=== PATIENT | male | born 1985 | race Caucasian/White ===

== ENCOUNTER 2020-11-19 09:14 | Emergency (ER) | payer OTHER, SELFPAY ==
[2020-11-19 09:29] VITALS: BP 132/72; PULSE 67; RESP 16; TEMP 36.2; O2SAT 99
--- NOTE | 2020-11-19 09:34 | ED.URI ---
HPI - URI/Sore Throat General Chief Complaint: Upper Respiratory Infection Stated Complaint: Getting over Covid Time Seen by Provider: 11/19/20 09:34 Source: patient and RN notes reviewed Mode of arrival: ambulatory Limitations: no limitations History of Present Illness HPI Narrative: 35-year-old male presents to the [facility] with concerns over stress and fatigue. Patient states he has had Covid 2 to 3 weeks ago. Patient reports that he still not feeling completely well. States that he used to be able to go and work out work long shifts and states he just wants to sleep. Denies any fevers. No chest pain or shortness of breath. No abdominal pain. Patient states that he is very stressed over possibly losing his job. Denies SI HI Related Data Allergies Allergy/AdvReac Type Severity Reaction Status Date / Time No Known Allergies Allergy Verified 11/19/20 09:50 Review of Systems Review of Systems: All systems reviewed & are unremarkable except as noted in HPI and below Constitutional: Constitutional: Reports as per HPI and Reports fatigue Eyes: Eyes: Reports no additional eye complaints ENT: Reports system reviewed and no additional complaints, except as documented, Denies dysphagia, Denies dizziness, Denies nasal congestion and Denies sore throat Cardiovascular: Cardiovascular: Reports no additional cardiovascular complaints and Denies chest pain Respiratory: Respiratory: Reports no additional respiratory complaints, Denies chest congestion, Denies cough, Denies dyspnea and Denies wheezing Gastrointestinal: Gastrointestinal: Reports no additional gastrointestinal complaints, Denies abdominal pain, Denies diarrhea, Denies nausea and Denies vomiting Musculoskeletal: Musculoskeletal: Reports no additional musculoskeletal complaints Integumentary/Breasts: Skin/Breast: Reports system reviewed and no additional complaints, except as docu Neurologic: Reports system reviewed and no additional complaints, except as documented Psychiatric: Psychiatric: Reports as per HPI, Reports anxiety, Denies homicidal ideation and Denies suicidal ideation Endocrine: Endocrine: Reports no additional endocrine complaints Allergic/Immunologic: Allergic/Immunologic: Reports no additional allergic/immunologic complaints PMFSH Past Medical History Medical History (Updated 11/19/20 @ 16:43 by Kely Savage) No significant past medical history Surgical History Surgical History (Updated 11/19/20 @ 16:43 by Kely Savage) No significant past surgical history Social History Social History (Updated 11/19/20 @ 16:43 by Kely Savage) Smoking status: Never smoker Living arrangements: with family Occupation/Education: occupation Gender identity (if verbalized by the patient): Male Comments At the time of my signature, I reviewed and agree with the nursing past medical, surgical, social, and family history. There is no relevant family history pertinent to the patient complaint. Exam Const: General: healthy appearing, no acute distress and alert Nutritional Appearance: well nourished Orientation/consciousness: patient oriented x3 Limitations: no limitations HENMT: Head: normal to inspection Eyes: Conjunctivae: conjunctivae normal Pupils: Equal, round and reactive pupils present Neck: Neck: normal visual inspection, no lymphadenopathy and no meningeal signs Chest: Chest palpation & inspection: normal inspection of the chest Resp: Effort & Inspection: normal respiratory effort and no use of accessory muscles Auscultation: clear to auscultation bilaterally, no crackles, no rales, no rhonchi and no wheezes Cardio: Rate: regular rate Rhythm: regular rhythm GI: GI Palp: Yes Soft to palpation, No Tenderness to palpation present (GI) and No Guarding due to palpation present (GI) Back/Spine/Pelvis: Back: no CVA tenderness Skin: General skin exam: normal color Rashes: no rashes Wounds: no wounds Neuro: General: patient or
== END 2020-11-19 10:00 | disposition home or self-care (01) ==
PROVIDERS: Emergency Provider Nurse Practitioner
DX: R53.83 Other fatigue (principal); U09.9 Post COVID-19 condition, unspecified
CPT/HCPCS: 99211; G0463

== ENCOUNTER 2024-12-18 17:45 | Emergency (ER) | payer OTHER, SELFPAY ==
--- NOTE | 2024-12-18 17:46 | ED.URI ---
HPI - URI/Sore Throat General Chief Complaint: Upper Respiratory Infection Stated Complaint: Sore Throat Time Seen by Provider: 12/18/24 17:46 Source: patient Mode of arrival: ambulatory Limitations: no limitations History of Present Illness HPI Narrative: Duy is a 39-year-old male patient presenting to the clinic today with complaints of a scratchy throat x 1 day. He reports has some discomfort with eating and drinking. States the throat is scratchy/itchy. Has used some throat lozenges. Noticed today that he has white spots in his throat. Denies any use of inhalers reviews antibiotic use. No fevers, chills, body aches. No known exposure to anyone with strep. MD elicited complaint: sore throat and nasal congestion Related Data Allergies Allergy/AdvReac Type Severity Reaction Status Date / Time No Known Allergies Allergy Verified 12/18/24 17:46 Review of Systems Review of Systems: Pertinent positives per HPI. Patient denies any fever, chills, rash, headache, visual changes, dizziness, cough, shortness of breath, chest pain, palpitations, nausea, vomiting, diarrhea, constipation, abdominal pain, or any urinary issues. PMFSH Past Medical History Medical History No significant past medical history Surgical History Surgical History No significant past surgical history Social History Social History Living arrangements: with family Occupation/Education: occupation Gender identity (if verbalized by the patient): Male Comments At the time of my signature, I reviewed and agree with the nursing past medical, surgical, social, and family history. There is no relevant family history pertinent to the patient complaint. Exam Narrative: General: Well-developed, well nourished, in no apparent distress Head: Normocephalic, atraumatic Eyes: Pupils equally round and reactive to light bilaterally, EOM intact, sclera and conjunctive clear, no discharge, lids normal Ears: TMs intact and clear, ear canals clear, no drainage, grossly hearing normal. Nose: Nares patent, no discharge, no inflammation, no sinus tenderness. Mouth: Oral pharynx red with white plaque-like lesions on the uvula, soft palate, oral pharynx without masses, good dentition, MMM. Neck: Supple, trachea midline, no enlargement of anterior or posterior cervical nodes, no thyroid masses or goiter palpable. Cardio: Regular rate and rhythm, s1 and s2 normal, no murmur appreciated. Resp: Clear to auscultation bilaterally, no rhonchi, rales, wheezing or rubs Course Course Emergency Course: Portions of this record may have been created with voice recognition software. Level of Care: Express Care Visit Vital Signs Vital signs: Vital Signs Temperature 36.9 C 12/18/24 17:56 Pulse Rate 72 12/18/24 17:56 Respiratory Rate 16 12/18/24 17:56 Blood Pressure 140/94 H 12/18/24 17:56 Pulse Oximetry 100 12/18/24 17:56 Oxygen Delivery Room Air 12/18/24 17:56 Temperature 36.9 C 12/18/24 17:56 Pulse Rate 72 12/18/24 17:56 Respiratory Rate 16 12/18/24 17:56 Blood Pressure 140/94 H 12/18/24 17:56 Pulse Oximetry 100 12/18/24 17:56 Oxygen Delivery Room Air 12/18/24 17:56 Vital signs reviewed MDM - URI/Sore Throat MDM Narrative Medical decision making narrative: At the time of visit patient is resting comfortably on the exam table. Patient appears to be nontoxic. Complaints of a scratchy throat x 1 day. He reports has some discomfort with eating and drinking. States the throat is scratchy/itchy. Has used some throat lozenges. Noticed today that he has white spots in his throat. Denies any use of inhalers reviews antibiotic use. No fevers, chills, body aches. No known exposure to anyone with strep. On exam patient has red oropharynx with white plaque-like lesions to the uvula and soft palate. Strep test was ordered. Labs: Strep test was negative in the clinic today. Plan: I suspect patient has oral candidiasis. Prescription for nystatin swish and swallow was sent to the pharmacy. Supportive measures were discussed with the patient and they voiced understanding discharge instructions and agrees to treatment plan. Return precautions reviewed Differential Diagnosis Differential diagnosis: Likely upper respiratory infection, otitis media, sinusitis, viral infection, bronchitis, influenza, pharyngitis and other (COVID) Lab Data Labs: Lab Results 12/18/24 Range/Units 18:01 POC Grp A Strep Screen Negative (Negative) Discharge Plan Discharge Clinical Impression: Oral thrush Patient Disposition: Home Condition: Stable Instructions: Antibiotic Form, Oral Candidiasis (ED) Additional Instructions: Take prescription medications only as prescribed-nystatin swish and swallow Increase fluids and stay well hydrated May take Tylenol or motrin as directed on bottle for pain/fever May use Flonase 1 spray in each nare daily May take OTC antihistamines such as Zyrtec or Claritin daily as directed on bottle May apply Vicks vapor rub to chest to open sinuses Sinus rinses for congestion Cepacol spray, cough drops, throat lozenges, warm tea with honey/lemon, gargle salt water to soothe throat BRAT diet for diarrhea Clear liquids x 24 hours then advance as tolerated for nausea/vomiting Go to the ED if you develop a worsening in your condition- high fever not controlled by Tylenol or Motrin, dehydration, weakness, lethargy, shortness of breath, or chest pain. Follow up with your PCP in 3-5 days if symptoms persist. Patient Language: Amharic Prescriptions: New nystatin 100,000 unit/mL suspension 5 ml PO QID 10 Days Qty: 200 0RF Rx Instructions: swish and swallow- retain in mouth as long as possible then swallow Follow-up/Referrals: Khalif,MD Brian [Primary Care Provider, Unknown] Time of Disposition: 18:00 Quality NIHSS Nursing Documentation ED NIHSS nursing documentation: reviewed/agree
--- OUTSIDE RECORDS SUMMARY | 2024-12-18 17:47 | XMS_ITS | Clinical Summary ---
Author Organization [facility] Address [address] [place] [id number] Care Team Providers Care Pedigree Researcher Name Role Phone Kaleb Arevalo MD Primary Care Provider [phone] Allergies No known active allergies Medications marijuana edibles Take 2-25 mg by mouth. Active marijuana inhalation Inhale 2-25 mg into the lungs. Active albuterol sulfate HFA (VENTOLIN HFA) 108 (90 Base) MCG/ACT inhalerIndicati ons:Seasonal allergies Inhale 2 puffs into the lungs every 4 (four) hours as needed (cough). 1 Inhaler 1 10/18/2018 Active montelukast 10 MG tabletIndicatio ns:Seasonal allergies Take 1 tablet (10 mg total) by mouth nightly at bedtime. 30 tablet 1 10/31/2018 Active HYDROcodone-mike taminophen 5-325 MG tabletIndicatio ns:Acute Pain < 7 Day Supply Take 1 tablet by mouth every 6 (six) hours as needed. Indications: Acute Pain < 7 Day Supply 28 tablet 10/30/2019 Active Active Problems Problem Noted Date Diagnosed Date Cervical pain 04/05/2019 TBI (traumatic brain injury) 10/15/2018 Immunizations Immunization Administration Dates Next Due Fluzone 6 Months+ Quad (0.5 mL Prefilled Syringe ) 01/04/2019 Influenza Adult (Generic) 12/14/2016 Tdap (Generic) 05/08/2015 Family History Medical History Relation Comments Alzheimers Father Anxiety Mother Relation Status Comments Father Mother Social History Tobacco Use Types Packs/Day Years Used Date Smoking Tobacco: Former Cigarettes Q uit: 2009 Smokeless Tobacco: Never Sex and Gender Information Value Date Recorded Sex Assigned at Not on file Legal Sex Male 8:05 PM CDT Gender Identity Not on file Sexual Orientation Not on file Last Filed Vital Signs Vital Sign Reading Time Taken Comments Blood Pressure 126/60 10/30/2019 9:23 AM CDT Pulse 85 10/30/2019 9:23 AM CDT Temperature 36.7 C (98 F) 07/21/2019 7:40 AM CDT Respiratory Rate 18 10/30/2019 9:23 AM CDT Oxygen Saturation 98% 10/30/2019 9:23 AM CDT Inhaled Oxygen Concentration - - Weight 123.8 kg (273 lb) 10/30/2019 9:23 AM CDT Height 185.4 cm (6' 1) 10/30/2019 9:23 AM CDT Body Mass Index 36.02 10/30/2019 9:23 AM CDT Plan of Treatment Health Maintenance Due Date Last Done Comments Annual Physical 10/12/1990 Hepatitis C 10/12/2005 Hepatitis B Vaccines (1 of 3 - 19+ 3-dose series) 10/12/2006 HPV Vaccines (1 - 3-dose SCD M series) 10/12/2014 COVID-19 Vaccine ( - 2024-2 6 season) 2024 Influenza Adult (#1) 2024 01/04/2019, 12/14/2016 DTaP, Tdap and Td Vaccines ( 2 - Td or Tdap) 05/07/2025 05/08/2015 Hepatitis A Vaccines Aged Out No long er eligible based on patient's age to complete this topic Meningococcal B Vaccine Aged Out No l onger eligible based on patient's age to complete this topic Meningococcal Vaccine Aged Out No ayah blaze eligible based on patient's age to complete this topic Pneumococcal Vaccine: Pediatrics (0 to 5 Years) and At-Risk Patients (6 to 49 Years) Aged Out No longer eligible b ased on patient's age to complete this topic RSV Immunizations Under 20 Months Aged Out No longer eligible b ased on patient's age to complete this topic Insurance [employer] Care Teams Pedigree Researcher Relationship Specialty [place] [id number] [address] [id number] PCP - General FAMILY PRACTICE 10/15/18
--- OUTSIDE RECORDS SUMMARY | 2024-12-18 17:48 | XMS_ITS | Clinical Summary ---
Author Organization [facility] Address [address] [place] [address] Care Team Providers Care Drug Enforcement Administration Agent Name Role Phone Unavailable Primary Care Provider Unavailabl e Source Comments [facility],non-owned Affiliates and Associated Physician Practices is amultiple site organization consisting of ambulatory clinics and hospital sitesin [place], [place], [place] and [place]. This disclosure is being madepursuant to the Care Everywhere program and may not contain all information available regarding this patient. Last updated 17.[facility] Allergies No known active allergies Medications * Be aware that medications may not be up to date on this document. Alwaysverify current medications with the patient. HYDROcodone-mike taminophen (NORCO) 5-325 MG tablet Take 1 (one) tablet by mouth every 6 hours as needed for Pain Use for pain not controlled with ibuprofen 10 tablet Active Social History Tobacco Use Types Packs/Day Years Used Date Smoking Tobacco: Unknown Alcohol Use Standard Drinks/Week Comments Not Currently 0 (1 standard drink = 0.6 oz pur e alcohol) Sex and Gender Information Value Date Recorded Sex Assigned at Not on file Legal Sex Male 6:10 AM CDT Gender Identity Not on file Sexual Orientation Not on file Last Filed Vital Signs Vital Sign Reading Time Taken Comments Blood Pressure 128/75 05/29/2020 11:00 AM CDT Pulse 85 05/29/2020 11:08 AM CDT Temperature 36.6 C (97.9 F) 05/29/2020 6:06 AM CDT Respiratory Rate 19 05/29/2020 11:08 AM CDT Oxygen Saturation 96% 05/29/2020 11:08 AM CDT Inhaled Oxygen Concentration - - Weight 90.7 kg (200 lb) 05/29/2020 6:28 AM CDT Height 182.9 cm (6') 05/29/2020 6:28 AM CDT Body Mass Index 27.12 05/29/2020 6:28 AM CDT Plan of Treatment Health Maintenance Due Date Last Done Comments HIV SCREENING 10/12/2002 HEPATITIS C SCREENING 10/08/2005 DTAP/TDAP/TD VACCINES (1 - Tdap) 10/12/2006 HEPATITIS B VACCINE (1 of 3 - 19+ 3-dose series) 10/12/2006 HPV VACCINE (1 - 3-dose SCDM series) 10/12/2014 DEPRESSION SCREENING 02/09/2024 COVID-19 VACCINE (2023-2 5 season) 2024 INFLUENZA VACCINE (#1) 2024 9, 12/14/2016 ZOSTER VACCINE (1 of 2) 10/12/2037 HIB VACCINE Aged Out No longer eligi ble based on patient's age to complete this topic MENINGOCOCCAL (Group B) VACCINE SHARED DECISION-MAKING Aged Out No longer eligible based on patient's age to complete this topic MENINGOCOCCAL GROUPS A/C/Y/W VACCINE Aged Out No longer eligible b ased on patient's age to complete this topic PNEUMOCOCCAL VACCINE Aged Out No long er eligible based on patient's age to complete this topic Insurance [facility]
[2024-12-18 17:56] VITALS: BP 140/94; PULSE 72; RESP 16; TEMP 36.9; O2SAT 100
[2024-12-18 18:03] LABS: EDSTREPNEGPOS1 Negative (Negative)
== END 2024-12-18 18:04 | disposition home or self-care (01) ==
PROVIDERS: Emergency Provider Nurse Practitioner Family; PCP Family Medicine
DX: B37.0 Candidal stomatitis (principal)
CPT/HCPCS: 87081; 87880; 99213; G0463